=== PATIENT | male | born 1940 | race Two or more races ===

== ENCOUNTER 2021-06-23 12:10 | Emergency (ER) | payer MEDICARE, OTHER ==
[~2021-06-23] VITALS: Ht 165.1 cm; Wt 74.8 kg
[~2021-06-23 12:10] MED LIST: AMLO1CAP5
[2021-06-23 12:15] VITALS: BP 119/73
--- NOTE | 2021-06-23 12:16 | NUR ---
TO ER BED 1, C/O L EAR PAIN FOR 3 DAYS, A&OX4, SON AT BEDSIDE
[2021-06-23] MEDS ORDERED: NEOM10DR11 OT (12:24)
[2021-06-23] MEDS ORDERED: AMOX-430 PO (12:24)
[2021-06-23] MEDS ORDERED: IBUPROFEN 400 MG TABLET ONE (12:27)
[2021-06-23] MEDS ORDERED: IBUPROFEN 400 MG TABLET PO ONE (12:30)
== END 2021-06-23 12:30 | disposition home or self-care (01) ==
LOC: ER 12:10
DX: H60.92 Unspecified otitis externa, left ear (principal); H61.002 Unspecified perichondritis of left external ear; I10 Essential (primary) hypertension; I25.2 Old myocardial infarction; Z98.890 Other specified postprocedural states; Z79.899 Other long term (current) drug therapy

== ENCOUNTER 2022-09-27 17:09 | Inpatient (IN) | payer MEDICARE, OTHER ==
[~2022-09-27] VITALS: Ht 172.7 cm; Wt 67.6 kg
[~2022-09-27 17:09] MED LIST changes: +AMOX-430 PO; +NEOM10DR11 OT
[2022-09-27 18:15] LABS: BASOPHILS % (AUTO) 0.4 % (0.0-2.0); EOSINOPHILS % (AUTO) 2.3 % (0.0-6.0); HEMATOCRIT 45 % (39-51); HEMOGLOBIN 15.2 g/dL (13.5-17.5); LYMPHOCYTES # (AUTO) 2.1 K/uL (0.8-4.8); LYMPHOCYTES % (AUTO) 26.3 % (20.0-44.0); MEAN CORPUSCULAR HGB CONC 34 g/dl (31.0-36.0); MEAN CORPUSCULAR VOLUME 92 fL (80-96); MONOCYTES # (AUTO) 0.5 K/uL (0.1-1.30); MONOCYTES % (AUTO) 6.3 % (2.0-12.0); NEUTROPHILS # (AUTO) 5.2 K/uL (1.8-8.9); NEUTROPHILS % (AUTO) 64.7 % (43.0-81.0); PLATELET COUNT (AUTO) 212 K/uL (150-450); RED BLOOD CELL COUNT(AUTO) 4.94 MIL/uL (4.5-6.0); WHITE BLOOD COUNT (AUTO) 8.1 K/uL (4.3-11.0)
[2022-09-27 18:28] LABS: ALBUMIN 4.4 g/dL (3.4-5.0); BILIRUBIN,TOTAL 3.3 mg/dL (0.2-1.0); CALCIUM, SERUM 8.9 mg/dL (8.5-10.1); CREATININE 1.1 mg/dL (0.6-1.3); POTASSIUM 4.4 mmol/L (3.5-5.1); TOTAL PROTEIN, SERUM 8.9 g/dL (6.4-8.2)
[2022-09-27] MEDS ORDERED: IV NS 0.9% 250 ML IV ONE (18:41)
[2022-09-27] MEDS ORDERED: IOHEXOL-350 100 ML VIAL IV ONE (18:41)
[2022-09-27] MEDS ORDERED: CT SWABBABLE VALVE TRANS SET 1 EA INFUS.SET MC ONE (18:41)
[2022-09-27] MEDS ORDERED: ACETAMINOPHEN 325 MG TABLET PO PRN (21:30)
[2022-09-27] MEDS ORDERED: MORPHINE SULFATE INJ 2 MG/ML DISP.SYRIN IV PRN (21:30)
[2022-09-27] MEDS ORDERED: ONDANSETRON HCL/PF 4 MG/2 ML VIAL IVP PRN (21:30)
[2022-09-27 22:31] LABS: THYROID STIMULATING HORMONE 1.52 uIU/mL (0.358-3.74)
[2022-09-27] MEDS: IV NS 0.9% 1,000 ML IV SCH (22:32)
[2022-09-27 23:28] VITALS: BP 142/99
[2022-09-27] MEDS ORDERED: hydrALAZINE HCL IV 20 MG VIAL IV PRN (23:30)
[2022-09-28] VITALS (7 sets, daily range): BP systolic 100–163; BP diastolic 55–97
[2022-09-28 06:16] LABS: BASOPHILS % (AUTO) 0.7 % (0.0-2.0); EOSINOPHILS % (AUTO) 4.5 % (0.0-6.0); HEMATOCRIT 41 % (39-51); HEMOGLOBIN 14.1 g/dL (13.5-17.5); LYMPHOCYTES # (AUTO) 2.5 K/uL (0.8-4.8); LYMPHOCYTES % (AUTO) 36.9 % (20.0-44.0); MEAN CORPUSCULAR HGB CONC 34 g/dl (31.0-36.0); MEAN CORPUSCULAR VOLUME 91 fL (80-96); MONOCYTES # (AUTO) 0.6 K/uL (0.1-1.30); MONOCYTES % (AUTO) 9.5 % (2.0-12.0); NEUTROPHILS # (AUTO) 3.3 K/uL (1.8-8.9); NEUTROPHILS % (AUTO) 48.4 % (43.0-81.0); PLATELET COUNT (AUTO) 190 K/uL (150-450); RED BLOOD CELL COUNT(AUTO) 4.47 MIL/uL (4.5-6.0); WHITE BLOOD COUNT (AUTO) 6.8 K/uL (4.3-11.0)
[2022-09-28 06:19] LABS: ALBUMIN 3.5 g/dL (3.4-5.0); BILIRUBIN,TOTAL 2.7 mg/dL (0.2-1.0); CALCIUM, SERUM 8.4 mg/dL (8.5-10.1); CREATININE 1.1 mg/dL (0.6-1.3); MAGNESIUM 2.1 mg/dL (1.8-2.4); PHOSPHORUS 3.6 mg/dL (2.5-4.9); POTASSIUM 3.7 mmol/L (3.5-5.1); TOTAL PROTEIN, SERUM 7.2 g/dL (6.4-8.2)
[2022-09-28] MEDS: NEOM/POLY B SULF/HC OTIC SUSP 10 ML BOTTLE OT SCH ×4 (09:00→21:00)
[2022-09-28] MEDS: HEPARIN SODIUM, PORCINE 5000 UNITS/1 ML VIAL SQ SCH ×3 (09:00→21:00)
[2022-09-28] MEDS ORDERED: CARV12.52 PO (09:33)
[2022-09-28] MEDS ORDERED: SIMV-46 PO (09:43)
[2022-09-28] MEDS ORDERED: LOSA50TA39 PO (09:43)
[2022-09-28] MEDS: LOSARTAN POTASSIUM 50 MG TABLET PO SCH ×2 (11:39→21:00)
[2022-09-28] MEDS: CARVEDILOL 12.5 MG TABLET PO SCH ×2 (11:39→21:00)
[2022-09-28] MEDS: IV NS 0.9% 1,000 ML IV SCH (11:39)
[2022-09-28] MEDS ORDERED: IOHEXOL-350 100 ML VIAL IV ONE (13:21)
[2022-09-28] MEDS ORDERED: METOPROLOL TARTRATE INJ 5 MG/5 ML AMPUL ONE ×2 (13:24→13:31)
[2022-09-28] MEDS: SIMVASTATIN 20 MG TABLET PO SCH ×2 (17:04→17:07)
[2022-09-29] MEDS: IV NS 0.9% 1,000 ML IV SCH (00:34)
[2022-09-29 04:35] VITALS: BP_SYST 146
[2022-09-29 06:20] LABS: BASOPHILS % (AUTO) 0.3 % (0.0-2.0); EOSINOPHILS % (AUTO) 3.8 % (0.0-6.0); HEMATOCRIT 38 % (39-51); HEMOGLOBIN 12.8 g/dL (13.5-17.5); LYMPHOCYTES # (AUTO) 2.6 K/uL (0.8-4.8); LYMPHOCYTES % (AUTO) 37.5 % (20.0-44.0); MEAN CORPUSCULAR HGB CONC 34 g/dl (31.0-36.0); MEAN CORPUSCULAR VOLUME 92 fL (80-96); MONOCYTES # (AUTO) 0.6 K/uL (0.1-1.30); MONOCYTES % (AUTO) 8.8 % (2.0-12.0); NEUTROPHILS # (AUTO) 3.5 K/uL (1.8-8.9); NEUTROPHILS % (AUTO) 49.6 % (43.0-81.0); PLATELET COUNT (AUTO) 175 K/uL (150-450); RED BLOOD CELL COUNT(AUTO) 4.16 MIL/uL (4.5-6.0)
[2022-09-29 06:23] LABS: CALCIUM, SERUM 8.1 mg/dL (8.5-10.1); CREATININE 1.2 mg/dL (0.6-1.3); POTASSIUM 4.2 mmol/L (3.5-5.1)
[2022-09-29 08:30] VITALS: BP 137/87
[2022-09-29] MEDS: HEPARIN SODIUM, PORCINE 5000 UNITS/1 ML VIAL SQ SCH (09:00)
[2022-09-29] MEDS ORDERED: ropiniROLE 0.5 MG TABLET PO SCH (09:00)
[2022-09-29] MEDS: CARVEDILOL 12.5 MG TABLET PO SCH (09:00)
[2022-09-29 09:04] VITALS: BP 137/85
[2022-09-29] MEDS: NEOM/POLY B SULF/HC OTIC SUSP 10 ML BOTTLE OT SCH (09:04)
[2022-09-29] MEDS: LOSARTAN POTASSIUM 50 MG TABLET PO SCH (09:04)
[2022-09-29 09:06] LABS: CHOLESTEROL 185 mg/dL (<200); HDL CHOLESTEROL 61 mg/dL (40-60); LDL 117 mg/dL (0-99); TRIGLYCERIDES 41 mg/dL (30-150)
== END 2022-09-29 11:10 | disposition home or self-care (01) | DRG 70 ==
LOC: ER 17:15 → TELE 21:12
PROVIDERS: ADMIT Internal Medicine; ATTEND Internal Medicine
DX: G93.41 Metabolic encephalopathy (principal); I21.A1 Myocardial infarction type 2; E87.1 Hypo-osmolality and hyponatremia; N17.9 Acute kidney failure, unspecified; I50.32 Chronic diastolic (congestive) heart failure; I25.10 Atherosclerotic heart disease of native coronary artery without angina pectoris; I10 Essential (primary) hypertension; Z20.822 Contact with and (suspected) exposure to COVID-19; I11.0 Hypertensive heart disease with heart failure; E78.5 Hyperlipidemia, unspecified; I77.819 Aortic ectasia, unspecified site; Z90.79 Acquired absence of other genital organ(s); K59.00 Constipation, unspecified; N40.0 Benign prostatic hyperplasia without lower urinary tract symptoms; Z98.61 Coronary angioplasty status; Z79.899 Other long term (current) drug therapy; I25.2 Old myocardial infarction; G25.81 Restless legs syndrome
CPT/HCPCS: 36415; 70450-TC; 70496-TC; 70498-TC; 71045-TC; 75574; 80048-TC; 80053-TC; 80061-TC; 82140-TC; 83605-TC; 83735-TC; 84100-TC; 84439-TC; 84443-TC; 84484-TC; 85025-TC; 87081-TC; 93307-TC; C9803; G0378; J0360; J1644; J3490; J7030; J7050; Q9967

== ENCOUNTER 2023-01-02 12:23 | Outpatient (CLI) | payer MEDICARE, OTHER ==
[~2023-01-02 12:23] MED LIST changes: -AMLO1CAP5; -AMOX-430 PO; +CARV12.52 PO; +LOSA50TA39 PO; -NEOM10DR11 OT; +SIMV-46 PO
[2023-01-02 13:06] LABS: BASOPHILS % (AUTO) 0.4 % (0.0-2.0); EOSINOPHILS % (AUTO) 0.1 % (0.0-6.0); HEMATOCRIT 39 % (39-51); HEMOGLOBIN 12.9 g/dL (13.5-17.5); LYMPHOCYTES # (AUTO) 1.2 K/uL (0.8-4.8); LYMPHOCYTES % (AUTO) 25.7 % (20.0-44.0); MEAN CORPUSCULAR HGB CONC 34 g/dl (31.0-36.0); MEAN CORPUSCULAR VOLUME 93 fL (80-96); MONOCYTES # (AUTO) 0.8 K/uL (0.1-1.30); MONOCYTES % (AUTO) 16.6 % (2.0-12.0); NEUTROPHILS # (AUTO) 2.7 K/uL (1.8-8.9); NEUTROPHILS % (AUTO) 57.2 % (43.0-81.0); PLATELET COUNT (AUTO) 171 K/uL (150-450); RED BLOOD CELL COUNT(AUTO) 4.15 MIL/uL (4.5-6.0); WHITE BLOOD COUNT (AUTO) 4.7 K/uL (4.3-11.0)
[2023-01-02 13:22] LABS: ALANINE AMINOTRANSFERASE 41 U/L (12-78); ALBUMIN 3.9 g/dL (3.4-5.0); ALKALINE PHOSPHATASE 57 U/L (46-116); ASPARTATE AMINOTRANSFERASE 33 U/L (15-37); BILIRUBIN,TOTAL 1.2 mg/dL (0.2-1.0); CALCIUM, SERUM 8.2 mg/dL (8.5-10.1); CARBON DIOXIDE 28 mmol/L (21-32); CHLORIDE 97 mmol/L (98-107); CREATININE 1.6 mg/dL (0.6-1.3); GLUCOSE 106 mg/dL (74-106); SODIUM SERUM 131 mmol/L (136-145); TOTAL PROTEIN, SERUM 7.9 g/dL (6.4-8.2); UREA NITROGEN, BLOOD 17 mg/dL (7-18)
[2023-01-02 13:34] LABS: THYROID STIMULATING HORMONE 0.575 uIU/mL (0.358-3.74)
[2023-01-02 19:04] LABS: BAND % (MANUAL) 2 % (0.0-5.0); LYMPHOCYTES % (MANUAL) 25 % (16-48); MONOCYTES % (MANUAL) 15 % (0-11.0); NEUTROPHILS % (MANUAL) 58 (42-76)
== END 2023-01-02 23:59 | disposition home or self-care (01) ==
LOC: LAB 12:23
PROVIDERS: ATTEND Internal Medicine Interventional Cardiology
DX: E03.9 Hypothyroidism, unspecified (principal); I10 Essential (primary) hypertension; R53.83 Other fatigue
CPT/HCPCS: 36415; 80053-TC; 84439-TC; 84443-TC; 85025-TC